=== PATIENT | female | born 1965 | race Caucasian/White ===

== ENCOUNTER 2017-06-23 11:03 | Emergency (ER) | payer OTHER ==
[~2017-06-23] VITALS: Ht 167.6 cm; Wt 59.9 kg
[2017-06-23 13:10] VITALS: BP 121/80
== END 2017-06-23 13:10 | disposition home or self-care (01) ==
LOC: ED 11:03
DX: S91.332A Puncture wound without foreign body, left foot, initial encounter (principal); Z86.718 Personal history of other venous thrombosis and embolism; Z88.8 Allergy status to other drugs, medicaments and biological substances; W22.8XXA Striking against or struck by other objects, initial encounter; Y93.89 Activity, other specified; Y99.8 Other external cause status; Y92.89 Other specified places as the place of occurrence of the external cause
CPT/HCPCS: 90715; J2270; Q0092

== ENCOUNTER 2019-02-06 21:08 | Emergency (ER) | payer OTHER ==
[~2019-02-06] VITALS: Ht 165.1 cm; Wt 59.9 kg
[2019-02-06 21:18] VITALS: Ht 165.1 cm; Wt 59.9 kg
[2019-02-06 23:39] VITALS: BP 116/71
== END 2019-02-06 23:39 | disposition home or self-care (01) ==
LOC: ED 21:08
DX: S20.212A Contusion of left front wall of thorax, initial encounter (principal); Z98.890 Other specified postprocedural states; Z88.8 Allergy status to other drugs, medicaments and biological substances; X58.XXXA Exposure to other specified factors, initial encounter; Y93.B9 Activity, other involving muscle strengthening exercises; Y92.39 Other specified sports and athletic area as the place of occurrence of the external cause; Y99.8 Other external cause status
CPT/HCPCS: J1885